=== PATIENT | female | born 1965 | race Caucasian/White ===

== ENCOUNTER 2017-10-16 13:42 | Emergency (ER) | payer OTHER ==
[2017-10-16 13:48] VITALS: BP 143/86; PULSE 75; TEMP 97.6; BMI 33.1
--- NOTE | 2017-10-16 14:20 | PDOC ---
History of Present Illness - General History Source: Patient Exam Limitations: No Limitations - History of Present Illness Initial Comments: 10/16/17 14:51 The patient is a 52-year-old female, with a significant past medical history of pre-diabetes, hypercholesterolemia, and vertigo, who presents to the ED with worsening right-sided groin pain. The patient states that she has had this pain for over a year now, but did not think much of it. She denies ever seeing a physician for the pain. She also reports having 3 episodes of diarrhea yesterday , nausea, and has noted blood in her vaginal discharge for the past few days. She denies taking any medications for her pain. The patient denies any fever, chills, or vomiting. She denies any dysuria, hematuria, frequency, urgency, or hesitancy. Allergies: NKA <Brook Turcios - Last Filed: 10/16/17 15:14> <Radha Scanlon - Last Filed: 10/16/17 19:12> - General Chief Complaint: Pain Stated Complaint: ABD PAIN Time Seen by Provider: 10/16/17 14:19 Past History <Brook Turcios - Last Filed: 10/16/17 15:14> - Past Medical History COPD: No Diabetes: (pre diabetic) Hypercholesterolemia: Yes Other medical history: vertigo - Suicide/Smoking/Psychosocial Hx Smoking History: Never smoked <Radha Scanlon - Last Filed: 10/16/17 19:12> - Past Medical History Allergies/Adverse Reactions: Allergies Allergy/AdvReac Type Severity Reaction Status Date / Time No Known Allergies Allergy Verified 10/16/17 13:48 Home Medications: Ambulatory Orders Atorvastatin Calcium 0 mg PO DAILY 10/16/17 metroNIDAZOLE [Metronidazole] 500 mg PO BID #14 tablet 10/16/17 Review of Systems - Review of Systems Able to Perform ROS?: Yes Comments:: 10/16/17 14:53 GENERAL/CONSTITUTIONAL: No fever or chills. No weakness. HEAD, EYES, EARS, NOSE AND THROAT: No change in vision. No ear pain or discharge. No sore throat. CARDIOVASCULAR: No chest pain or shortness of breath. RESPIRATORY: No cough, wheezing, or hemoptysis. GASTROINTESTINAL: (+)nausea. No vomiting, diarrhea or constipation. GENITOURINARY: No dysuria, frequency, or change in urination. MUSCULOSKELETAL: (+)Right-sided groin pain. No joint swelling or pain. No neck or back pain. SKIN: No rash NEUROLOGIC: No headache, vertigo, loss of consciousness, or change in strength/ sensation. ENDOCRINE: No increased thirst. No abnormal weight change. HEMATOLOGIC/LYMPHATIC: No anemia, easy bleeding, or history of blood clots. ALLERGIC/IMMUNOLOGIC: No hives or skin allergy. <Brook Turcios - Last Filed: 10/16/17 15:14> *Physical Exam - Vital Signs Last Vital Signs Temp Pulse Resp BP Pulse Ox 97.6 F 75 18 143/86 100 10/16/17 13:44 10/16/17 13:44 10/16/17 13:44 10/16/17 13:44 10/16/17 13:44 - Physical Exam Comments: 10/16/17 15:15 GENERAL: Awake, alert, and fully oriented, in no acute distress HEAD: No signs of trauma EYES: PERRLA, EOMI, sclera anicteric, conjunctiva clear ENT: Auricles normal inspection, hearing grossly normal, nares patent, oropharynx clear without exudates. Moist mucosa NECK: Normal ROM, supple, no lymphadenopathy, JVD, or masses LUNGS: Breath sounds equal, clear to auscultation bilaterally. No wheezes, and no crackles HEART: Regular rate and rhythm, normal S1 and S2, no murmurs, rubs or gallops ABDOMEN: Soft, nontender, normoactive bowel sounds. No guarding, no rebound. No masses MSK: (+)Right-sided groin pain. EXTREMITIES: Normal range of motion, no edema. No clubbing or cyanosis. No cords, erythema, or tenderness NEUROLOGICAL: Cranial nerves II through XII grossly intact. Normal speech, normal gait SKIN: Warm, Dry, normal turgor, no rashes or lesions noted <Brook Turcios - Last Filed: 10/16/17 15:14> - Vital Signs Last Vital Signs Temp Pulse Resp BP Pulse Ox 97.6 F 75 18 143/86 100 10/16/17 13:44 10/16/17 13:44 10/16/17 13:44 10/16/17 13:44 10/16/17 13:44 <Radha Scanlon - Last Filed: 10/16/17 19:12> ED Treatment Course - LABORATORY CBC & Chemistry Diagram: 10/16/17 14:36 10/16/17 14:36 <Brook Turcios - Last Filed: 10/16/17 15:14> - LABORATORY CBC & Chemistry Diagram: 10/16/17 14:36 10/16/17 14:36 <Radha Scanlon - Last Filed: 10/16/17 19:12> Medical Decision Making - Medical Decision Making 10/16/17 14:44 a/p: 52yo female with 1 year hx of R groin/pelvic pain that worsened today - diarrhea/nausea -no f/c -no dysuria -will check labs, pelvic u/s -will give ivf hdyration, pain control, nausea control 10/16/17 18:47 pt feeling much better. no pain 10/16/17 19:01 pt on vaginal exam has white foul smelling discharge - will treat for poss bv discussed plan with the patient labs reviewed and stable 10/16/17 19:02 ultrasound does not show acute findings stable for d/c to home discussed all resutls with the patient and need for follow up <Radha Scanlon - Last Filed: 10/16/17 19:12> *DC/Admit/Observation/Transfer - Attestations Scribe Attestion: 10/16/17 15:16 Documentation prepared by Brook Turcios, acting as medical billing clerk for Radha Scanlon DO. <Brook Turcios - Last Filed: 10/16/17 15:14> - Discharge Dispostion Admit: No - Attestations Physician Attestion: 10/16/17 19:10 I, Dr. Radha Scanlon DO, attest that this document has been prepared under my direction and personally reviewed by me in its entirety. I further attest, that it accurately reflects all work, treatment, procedures and medical decision -making performed by me. <Radha Scanlon - Last Filed: 10/16/17 19:12> Diagnosis at time of Disposition: Bacterial vaginosis, Pelvic pain - Discharge Dispostion Disposition: HOME Condition at time of disposition: Stable - Prescriptions Prescriptions: metroNIDAZOLE [Metronidazole] 500 mg PO BID #14 tablet - Referrals Referrals: Misti Worthy MD [Primary Care Provider] - Shahida Woods MD [Staff Physician] - - Patient Instructions Printed Discharge Instructions: DI for Bacterial Vaginosis Additional Instructions: Please take all medications as prescribed. Please follow up with your PMD and the puppet developer. Please return to the ED with any further concerns.
[2017-10-16] MEDS ORDERED: SODIUM CHLORIDE 0.9% 1000 ML INFUS.BAG IV ONE (14:28)
[2017-10-16] MEDS ORDERED: ONDANSETRON 4 MG/2 ML VIAL IVPUSH ONE (14:28)
[2017-10-16] MEDS ORDERED: ACETAMINOPHEN 1000 MG/100 ML VIAL (NON FORMULARY) IVPB ONE (14:28)
[2017-10-16] MEDS ORDERED: ACETAMINOPHEN INJECTION 100 ML IVPB ONE (14:49)
[2017-10-16] MEDS ORDERED: ONDANSETRON 4 MG/2 ML VIAL ONE (14:49)
[2017-10-16 15:18] LABS: URINE APPEARANCE CLEAR; URINE BILIRUBIN NEGATIVE (<2.0 mg/dL); URINE BLOOD NEGATIVE (NEGATIVE); URINE COLOR LTYELLOW; URINE GLUCOSE (UA) NEGATIVE (NEGATIVE); URINE KETONE NEGATIVE (NEGATIVE); URINE LEUK ESTERASE NEGATIVE (NEGATIVE); URINE NITRITE NEGATIVE (NEGATIVE); URINE PROTEIN NEGATIVE (NEGATIVE); URINE UROBILINOGEN NEGATIVE mg/dL (0.2-1.0)
[2017-10-16 15:20] LABS: BASO % 0.5 % (0-2.0); EOS % 0.6 % (0-4.5); HEMATOCRIT 37.2 % (32.4-45.2); HEMOGLOBIN 12.6 GM/dL (10.7-15.3); LYMPH % 25.1 % (8-40); MCH 30.5 pg (25.7-33.7); MCHC 33.7 g/dl (32.0-36.0); MEAN CELL VOLUME 90.3 fl (80-96); MEAN PLT VOLUME 7.4 fl (7.5-11.1); MONO % 5.6 % (3.8-10.2); NEUT % 68.2 % (42.8-82.8); PLATELET COUNT 274 K/MM3 (134-434); RBC 4.12 M/mm3 (3.60-5.2); RDW 14.7 % (11.6-15.6); WHITE BLOOD COUNT 6.9 K/mm3 (4.0-10.0)
[2017-10-16 15:37] LABS: ALBUMIN 3.8 g/dl (3.4-5.0); ALK PHOS 105 U/L (45-117); ANION GAP 6 (8-16); BLOOD UREA NITROGEN 13 mg/dL (7-18); CALCIUM 8.6 mg/dL (8.5-10.1); CHLORIDE 108 mmol/L (98-107); CO2 27 mmol/L (21-32); CREATININE 0.6 mg/dL (0.55-1.02); GLUCOSE,RANDOM 69 mg/dL (74-106); POTASSIUM 4.5 mmol/L (3.5-5.1); SGOT/AST 18 U/L (15-37); SGPT/ALT 27 U/L (12-78); SODIUM 141 mmol/L (136-145); TOT PROT 7.1 g/dl (6.4-8.2)
[2017-10-16 15:38] LABS: BILIRUBIN,TOTAL < 0.1 mg/dL (0.2-1.0)
[2017-10-16] MEDS ORDERED: metroNIDAZOLE 250 MG TABLET PO ONE (19:01)
[2017-10-16] MEDS ORDERED: metroNIDAZOLE 250 MG TABLET ONE (19:21)
== END 2017-10-16 19:41 | disposition home or self-care (01) ==
LOC: JER 13:42
PROC: 3E033NZ Introduction of Analgesics, Hypnotics, Sedatives into Peripheral Vein, Percutaneous Approach (ICD-10-PCS; principal; 2017-10-16)
PROC: 3E033GC Introduction of Other Therapeutic Substance into Peripheral Vein, Percutaneous Approach (ICD-10-PCS; 2017-10-16)
DX: N76.0 Acute vaginitis (principal); B96.89 Other specified bacterial agents as the cause of diseases classified elsewhere; R10.2 Pelvic and perineal pain; E11.9 Type 2 diabetes mellitus without complications; E78.00 Pure hypercholesterolemia, unspecified; R42 Dizziness and giddiness
CPT/HCPCS: 36415; 76830-TC; 80053; 81003; 83690; 84703; 85025; 96374; 96375; 99285-25; J0131; J7030

== ENCOUNTER 2023-09-16 13:37 | Emergency (ER) | payer OTHER ==
[2023-09-16 13:46] VITALS: BP 169/78; PULSE 79; RESP 18; TEMP 98.4; BMI 31.3
[2023-09-16] MEDS ORDERED: ACETAMINOPHEN 325 MG TABLET (FP) ONE (14:56)
[2023-09-16] MEDS: ACETAMINOPHEN 325 MG TABLET (FP) PO ONE (15:03)
[2023-09-16 15:55] LABS: THROAT:GRP A STREP NOT DETECTED (NOTDETECTED)
== END 2023-09-16 16:00 | disposition home or self-care (01) ==
LOC: JER 13:37
DX: R05.9 Cough, unspecified (principal); R06.02 Shortness of breath; J02.9 Acute pharyngitis, unspecified; R09.81 Nasal congestion; R07.89 Other chest pain; Z20.822 Contact with and (suspected) exposure to COVID-19
CPT/HCPCS: 0241U-QW; 71046-TC-FY; 87651; 99284-25